=== PATIENT | female | born 1985 | race Caucasian/White ===

== ENCOUNTER 2018-10-17 07:09 | Outpatient (CLI) | payer OTHER ==
--- NOTE | 2018-10-17 08:23 | MRI ---
MRI BRAIN WITH AND WITHOUT IV CONTRAST: HISTORY: A 33-year-old female with post concussion syndrome, memory loss, and dizziness. FINDINGS: No restricted diffusion is seen. No evidence of infarct, hemorrhage, mass, midline shift, or abnorma l extraaxial fluid collections is seen. The ventricular size is normal and the basilar cisterns are patent. No abnormal postcontrast enhancement was seen. The visualized paranasal sinuses and mastoid air cells are well aerated. No tonsillar herniation is seen. IMPRESSION: Normal exam. POS: [id number]
[2018-10-17] MEDS ORDERED: Gadobenate Dimeglumine 529 MG/1 ML (20ML VIAL) ONE (09:00)
== END 2018-10-17 07:10 | disposition home or self-care (01) ==
LOC: SCSMRI 07:09
PROVIDERS: ATTEND Nurse Practitioner Acute Care
DX: F07.81 Postconcussional syndrome (principal)
CPT/HCPCS: 70553; A9577

== ENCOUNTER 2019-04-03 11:39 | Outpatient (CLI) | payer OTHER ==
--- NOTE | 2019-04-03 12:04 | RAD ---
3 views left middle finger: 04/03/2019 COMPARISON: None HISTORY: Injury, trauma, pain FINDINGS: No fracture or dislocation. No radiopaque foreign body or subcutaneous gas. Mild soft tissu e swelling suspected at the level of the third proximal interphalangeal joint. IMPRESSION: No acute findings.
== END 2019-04-03 11:40 | disposition home or self-care (01) ==
LOC: BICRAD 11:39
PROVIDERS: ATTEND Nurse Practitioner Family
DX: S69.92XA Unspecified injury of left wrist, hand and finger(s), initial encounter (principal)

== ENCOUNTER 2019-04-10 15:19 | Outpatient (CLI) | payer OTHER ==
--- NOTE | 2019-04-10 16:07 | ULT ---
BILATERAL LOWER EXTREMITY VENOUS DOPPLER EVALUATION PROVIDED CLINICAL HISTORY: Bilateral calf cramping for one month TECHNIQUE: Grayscale, color doppler and spectral doppler images were obtained of the common femoral , femoral, profunda femoral, popliteal and posterior tibial veins of both lower extremities. FINDINGS: There is normal compression, flow and augmentation seen with the deep venous structures within both l ower extremities. IMPRESSION: No sonographic evidence for lower extremity deep venous thrombosis.
== END 2019-04-10 15:20 | disposition home or self-care (01) ==
LOC: SCSULT 15:19
PROVIDERS: ATTEND Family Medicine Sports Medicine
DX: M79.661 Pain in right lower leg (principal); M79.662 Pain in left lower leg
CPT/HCPCS: 93970